=== PATIENT | female | born 1965 | race Caucasian/White ===

== ENCOUNTER 2017-02-04 09:03 | Emergency (ER) | payer OTHER ==
[~2017-02-04] VITALS: Ht 160 cm; Wt 76.5 kg
[2017-02-04 09:05] VITALS: Ht 160 cm; Wt 76.5 kg
--- NOTE | 2017-02-04 09:27 | ERD ---
ER Documentation Chief Complaint Date/Time DATE: 02/04/17 TIME: 09:23 Chief Complaint lower abdominal pain x 2 months HPI 52-year-old female with history of hypertension and dyslipidemia ambulatory to the ED complaining of a 18 year history of burning, diffuse, nonradiating lower abdominal pain which started after a 18 years ago but has become worse over the last 2 months. Worsening dysuria and polyuria but no hematuria or flank pain. No nausea, vomiting or diarrhea but is intermittently constipated. Denies hematemesis, hematochezia or melanotic stools. No vaginal discharge or bleeding. No chest pain or palpitations. No shortness of breath or cough. No night sweats, anorexia or weight loss. No fevers or chills. She was seen by primary care physician on multiple occasions without relief. ROS All systems reviewed and are negative except as per history of present illness. Medications Home Meds Active Scripts Ibuprofen* (Motrin*) 600 Mg Tab, 600 MG PO Q6 Y for PAIN, #20 TAB with food or milk Prov:DOMENIC BIRMINGHAM MD 02/04/17 Nitrofurantoin Monohyd Macrocr* (Macrobid*) 100 Mg Capsr, 100 MG PO BID for 7 Days, CAP Prov:DOMENIC BIRMINGHAM MD 02/04/17 PMhx/Soc Reviewed in chart. As per HPI History of Surgery: Yes ( 2) Hx Neurological Disorder: No Hx Respiratory Disorders: No Hx Cardiac Disorders: Yes (Hypertension) Hx Psychiatric Problems: No Hx Miscellaneous Medical Probl: Yes (Hyperlipidemia) Hx Alcohol Use: No Hx Substance Use: No Hx Tobacco Use: No FmHx No stroke or cancer Physical Exam Vitals Vital Signs Date Time Temp Pulse Resp B/P Pulse Ox O2 Delivery O2 Flow Rate FiO2 02/04/17 09:05 98.4 68 19 142/67 99 Physical Exam Const: Alert, anxious but in no acute distress Head: Atraumatic Eyes: Normal Conjunctiva ENT: Normal External Ears, Nose and Mouth. Neck: Full range of motion.. Nontender. Resp: Clear to auscultation bilaterally Cardio: Regular rate and rhythm, no murmurs Abd: Soft, non tender, non distended. Normal bowel sounds. Well-healed Pfannenstiel incision Skin: No petechiae or rashes Back: No midline or flank tenderness Ext: No cyanosis, or edema Neur: Awake and alert. No focal deficit observed Psych: Appears anxious but not depressed. Result Diagram: 02/04/1740 02/04/17 0940 Results 24 hrs Laboratory Tests Test 02/04/17 09:40 White Blood Count 4.310^3/ul Red Blood Count 4.9310^6/ul Hemoglobin 13.6g/dl Hematocrit 40.8% Mean Corpuscular Volume 82.8fl Mean Corpuscular Hemoglobin 27.6pg Mean Corpuscular Hemoglobin Concent 33.3g/dl Red Cell Distribution Width 12.2% Platelet Count 97119^3/UL Mean Platelet Volume 9.5fl Neutrophils % 47.6% Lymphocytes % 40.3% Monocytes % 7.5% Eosinophils % 3.5% Basophils % 0.9% Nucleated Red Blood Cells % 0.0/100WBC Neutrophils # 2.010^3/ul Lymphocytes # 1.710^3/ul Monocytes # 0.310^3/ul Eosinophils # 0.210^3/ul Basophils # 0.010^3/ul Nucleated Red Blood Cells # 0.010^3/ul Urine Color STRAW Urine Clarity CLEAR Urine pH 6.0 Urine Specific [place] 1.013 Urine Ketones NEGATIVEmg/dL Urine Nitrite NEGATIVEmg/dL Urine Bilirubin NEGATIVEmg/dL Urine Urobilinogen NEGATIVEmg/dL Urine Leukocyte Esterase 1+[place]/ul Urine Microscopic RBC 1/HPF Urine Microscopic WBC 1/HPF Urine Hemoglobin NEGATIVEmg/dL Urine Glucose NEGATIVEmg/dL Urine Total Protein NEGATIVEmg/dl Sodium Level 140mmol/L Potassium Level 4.0mmol/L Chloride Level 106mmol/L Carbon Dioxide Level 26mmol/L Anion Gap 12 Blood Urea Nitrogen 13mg/dl Creatinine 0.67mg/dl Glucose Level 106mg/dl Calcium Level 9.3mg/dl Total Bilirubin 1.1mg/dl Direct Bilirubin 0.00mg/dl Indirect Bilirubin 1.1mg/dl Aspartate Amino Transf (AST/SGOT) 29IU/L Alanine Aminotransferase (ALT/SGPT) 47IU/L Alkaline Phosphatase 116IU/L Total Protein 7.9g/dl Albumin 4.9g/dl Globulin 3.00g/dl Albumin/Globulin Ratio 1.63 Lipase 131U/L Current Medications Medications (Trade) Dose Ordered Sig/Kulwant Route PRN Reason Start Time Stop Time Status Last Admin Dose Admin Ketorolac Tromethamine (Toradol) 15 mg ONCE STAT IM 02/04/17 10:34 02/04/17 10:36 DC 02/04/17 10:51 Procedures/MDM DOCUMENTS REVIEWED: ED nurse, no prior records REEXAMINATION/REEVALUATION: Time: 10:45. Doing well. No pain. Abdomen soft nontender. MEDICAL DECISION MAKIN-year-old female with history of hypertension and dyslipidemia ambulatory to the ED complaining of a 18 year history of burning, diffuse, nonradiating lower abdominal pain which started after a 18 years ago but has become worse over the last 2 months now with dysuria. Abdominal exam is completely benign without significant tenderness, rebound, guarding or signs of peritonitis. Occult intra-abdominal process including but not limited to appendicitis, diverticulitis, bowel obstruction and cholecystitis are unlikely. An occult malignancy is certainly possible and will require further evaluation by her primary care physician. Labs are unremarkable. Urinalysis is not impressive but if she is having symptoms of a UTI/cystitis and Macrobid will be prescribed. Stable for discharge with precautionary instructions and outpatient follow-up as counseled. Patient understands that the etiology of her symptoms are not established and potential serious etiologies including neoplasm are possible and urgent outpatient follow- up is mandatory. Counseled patient and family regarding diagnostic workup, diagnosis and need for followup. Understands to return to ED if symptoms recur, worsen or any other concerns. Departure Diagnosis: Primary Impression: Abdominal pain Abdominal location: lower abdomen, unspecified Qualified Code: R10.30 - Lower abdominal pain Condition: Stable DOMENIC BIRMINGHAM MD Feb 04, 2017 09:27
[2017-02-04 09:59] LABS: BASOPHILS % 0.9 % (0.0-2.0); EOSINOPHILS # 0.2 10^3/ul (0.0-0.5); EOSINOPHILS % 3.5 % (0.0-7.0); HEMATOCRIT 40.8 % (37.0-47.0); HEMOGLOBIN 13.6 g/dl (12.0-16.0); LYMPHOCYTES # 1.7 10^3/ul (0.8-2.9); LYMPHOCYTES % 40.3 % (15.0-51.0); MEAN CORPUSCULAR HEMOGLOBIN 27.6 pg (29.0-33.0); MEAN CORPUSCULAR HGB CONC 33.3 g/dl (32.0-37.0); MEAN CORPUSCULAR VOLUME 82.8 fl (82.0-101.0); MEAN PLATELET VOLUME 9.5 fl (7.4-10.4); MONOCYTE # 0.3 10^3/ul (0.3-0.9); MONOCYTES % 7.5 % (0.0-11.0); NEUTROPHILS % 47.6 % (39.0-77.0); PLATELET COUNT 214 10^3/UL (140-415); RED BLOOD COUNT 4.93 10^6/ul (4.20-5.40); RED CELL DISTRIBUTION WIDTH 12.2 % (11.5-14.5); WHITE BLOOD COUNT 4.3 10^3/ul (4.8-10.8)
[2017-02-04 10:11] LABS: ADD UMIC YES; UR ASCORBIC ACID NEGATIVE (NEGATIVE); UR BILIRUBIN (Dip) NEGATIVE (NEGATIVE); UR BLOOD (Dip) NEGATIVE (NEGATIVE); UR CLARITY CLEAR (CLEAR); UR COLOR STRAW (YELLOW); UR GLUCOSE (Dip) NEGATIVE (NEGATIVE); UR KETONES (Dip) NEGATIVE (NEGATIVE); UR LEUKOCYTE ESTERASE (Dip) 1+ Leu/ul (NEGATIVE); UR NITRITE (Dip) NEGATIVE (NEGATIVE); UR RBC 1 /HPF (0-5); UR SPECIFIC GRAVITY (Dip) 1.013 (1.003-1.030); UR TOTAL PROTEIN (Dip) NEGATIVE (NEGATIVE); UR UROBILINOGEN (Dip) NEGATIVE (NEGATIVE)
[2017-02-04 10:15] LABS: ALBUMIN 4.9 g/dl (3.3-4.9); ALBUMIN/GLOBULIN RATIO 1.63; BILIRUBIN,INDIRECT 1.1 mg/dl (0-1.1); BILIRUBIN,TOTAL 1.1 mg/dl (0.2-1.3); CALCIUM 9.3 mg/dl (8.4-10.2); CREATININE 0.67 mg/dl (0.44-1.00); TOTAL PROTEIN 7.9 g/dl (6.1-8.1)
[2017-02-04] MEDS ORDERED: KETOROLAC 15 MG INJ IM STA (10:34)
[2017-02-04] MEDS ORDERED: IBUP-1542 PO (11:11)
[2017-02-04] MEDS ORDERED: NITR-58 PO (11:11)
[2017-02-04 11:43] VITALS: BP 138/62; PULSE 77; RESP 18; TEMP 98.4
== END 2017-02-04 11:45 | disposition home or self-care (01) ==
LOC: E/R 09:03
DX: R10.30 Lower abdominal pain, unspecified (principal); I10 Essential (primary) hypertension
CPT/HCPCS: 80053; 81001; 83690; 85025; 96372; J1885; Z7502